=== PATIENT | female | born 1950 | race African-American/Black ===

== ENCOUNTER → 2016-10-24 | Outpatient (CLI) | payer MEDICARE, OTHER ==
[~2016-10-24] MED LIST: CARVEDILOL3.125 MG ORAL; FUROSEMIDE40 MG ORAL; LOSARTAN POTASS25 MG ORAL; PHENAZOPYRIDIN200 MG ORAL; POTASSIUM CHLO10 ME2 PO; ZAROXOLYN2.5 MG ORAL
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
== END | disposition home or self-care (01) ==
LOC: CAT 08:04
DX: M25.511 Pain in right shoulder (principal); M47.892 Other spondylosis, cervical region; Z95.0 Presence of cardiac pacemaker

== ENCOUNTER → 2020-04-29 | Outpatient (CLI) | payer MEDICARE, OTHER ==
--- NOTE | 2020-04-29 15:38 | Diagnostic Imaging Report ---
Indication: Left knee pain Technique: Grayscale and duplex images of the left lower extremity arteries Comparison: none Findings: Triphasic waveforms with sharp systolic peaks at all levels, including the ankle and foot vessels. Impression: Negative for evidence of left lower extremity arterial insufficiency
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
== END | disposition home or self-care (01) ==
LOC: CAT 10:22
DX: M25.562 Pain in left knee (principal); S83.012A Lateral subluxation of left patella, initial encounter; M79.5 Residual foreign body in soft tissue; W19.XXXA Unspecified fall, initial encounter; Y92.9 Unspecified place or not applicable; R09.89 Other specified symptoms and signs involving the circulatory and respiratory systems; I73.9 Peripheral vascular disease, unspecified
CPT/HCPCS: 93926